=== PATIENT | male | born 1990 | race Caucasian/White ===

== ENCOUNTER → 2020-03-27 11:16 | Outpatient (BNVA) | payer SELFPAY | PROVIDERS: Visit Provider Nurse Practitioner | DX: S62.521A Displaced fracture of distal phalanx of right thumb, initial encounter for closed fracture (principal); X58.XXXA Exposure to other specified factors, initial encounter | CPT/HCPCS: 73130 ==

== ENCOUNTER 2022-02-12 10:29 | Outpatient (CLI) | payer OTHER, MEDICAID, SELFPAY ==
[2022-02-12] MEDS: iohexol 350 mg/mL 100 mL Btl IV (10:58)
--- NOTE | 2022-02-12 11:00 | CT_ITS ---
WS: [id number] CT ABDOMEN WITH CONTRAST HISTORY: abdominal pain, possible hernia. Epigastric pain. Contiguous single phase 5 mm axial imaging performed to the abdomen. Oral contrast has not been provi ded. Coronal and sagittal reformats are submitted. All CT scans at [facility] use at least on e of these dose optimization techniques: automated exposure control; mA and/or kV adjustment per rowena ent size (includes targeted exams where dose is matched to clinical indication); or iterative reconst ruction. CONTRAST: Omnipaque 350; 95 mL IV. DLP: 510.74 mGy.cm COMPARISON: None available. Lower thorax: Unremarkable. Liver: Normal. No intrahepatic dilatation. Gallbladder: Normal. Pancreas: Normal. Spleen: Normal. Adrenals: Normal. Right kidney: Normal. Left kidney: Normal. Aorta: Normal. GI tract: GE junction is normal. Mild fluid distention of the stomach. No small bowel obstruction. Th e visualized colon within the abdomen is negative. No adenopathy or free fluid. Abdominal wall: There is a very small fat-containing hernia at the umbilicus. No defect within the an terior abdominal wall in the supraumbilical region. No subxiphoid hernia. Visualized osseous structures: Unremarkable. CT/CT abdomen w con* [id number] IMPRESSION: 1. Very small umbilical hernia contains fat only. 2. No supraumbilical abdominal wall hernia.
== END 2022-02-12 10:30 | disposition home or self-care (01) ==
LOC: RAD 10:29
PROVIDERS: Visit Provider Surgery
DX: R10.9 Unspecified abdominal pain (principal); R19.00 Intra-abdominal and pelvic swelling, mass and lump, unspecified site; K42.9 Umbilical hernia without obstruction or gangrene
CPT/HCPCS: 74160

== ENCOUNTER 2024-11-17 13:13 | Emergency (ER) | payer BC, MEDICAID, SELFPAY ==
--- OUTSIDE RECORDS SUMMARY | 2023-08-03 11:15 | XMS_ITS | Continuity of Care Document ---
Author Organization [facility] Address [address] [id number][place] [address] Phone Care Team Providers Care Lime Vat Tender Name Role Phone Sherwood Norris MACIAS Unavailable [...] Diagnoses Date Provider Providers Copied on Encounter [facility], [id number] 5656631II- [place], [place], [address], [place] tel:[phone] [facility] Encounter for dental exam and cleaning w/o abnormal findings 4 Presley Pisano. [address] [place], [address], [place]. tel:[phone] Referring Provider: Norris Sherwood, [address] [place], [address]. tel:[phone] [facility], [address]kfkf[address]L4 6336855RY- [place], [place], [address], [place] tel:[phone] [facility] Encounter for dental exam and cleaning w/o abnormal findings 4 Presley Pisano. [address] [place], [address], [place]. tel:[phone] Referring Provider: Norris Sherwood, [address] [place], [address]. tel:[phone] OFFICE/OUTPAT IENT VISIT, [facility], [id number] 8759572PE- [place], [place], [address], [place] tel:[phone] [facility] Knee pain (chief complaint) Right anterior knee pain 3 Minor Tidwell. [address], [place], [address], [place]. tel:[phone] Referring Provider: Yaw Gaxiola, [address] [place], [address]. tel:[phone] [facility], [address] [id number] 7470977LE- [facility], [place], [place], [address], [place] tel:[phone] [facility] No Information 7 Luis A Beavers. [address] [place], [address], [place]. tel:[phone] Referring Provider: Nimesh Chinchilla, [address] [place], [address]. tel:[phone] [facility], [address] Nlrvy499X3 1945590UQLef[place], [address], [place] tel:[phone] [facility] No Information 4 No Information [facility], [address] [id number] 9080685JKLefl[place], [place], [address], [place] tel:[phone] [facility] No Information 7 4 No Information OFFICE/OUTPAT IENT VISIT, [facility], [address] Eexrv759F5 [place], [address], [place] tel:[phone] Family Medicine F1 anxiety (chief complaint) ADHD (chief complaint) back pain (chief complaint) No Information Feb- 0-201 2 No Information NEW-DETAIL/LO W COMPLEXITY [facility], [address] Kmftw038F5 1288131PJ[place]ef[place], [address], [place] tel:[phone] Family Medicine F1 No Information Feb-0 1-200 9 No Information [facility], [address] Tbsik597X4 1901722MOLefl[place], [place], [address], [place] tel:[phone] Family [facility] F1 No Information No Information Family History Family Member Type Diagnosis Age At Onset No Information Payers Payer name Insurance type Covered democrat ID Michaela Aquino (s) [id number] Social History Type Description Quantity Date Captured [...]
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
--- OUTSIDE RECORDS SUMMARY | 2024-11-17 13:18 | XMS_ITS | Encounter Summary ---
Author Organization [email or web address] Address [address] [place] [address] Care Team Providers Care Sales Project Engineer Name Role Phone Unavailable Primary Care Provider Unavailabl e Encounter Details Date Type Department Care Team (Late st Contact Info) Description 11/15/2024 External Device Data [facility]STRACTION Provider, Abstract NO ADDRESS ON FILE Social History Tobacco Use Types Packs/Day Years Used Date Smoking Tobacco: Former Smokeless Tobacco: Former Alcohol Use Standard Drinks/Week Comments No 0 (1 standard drink = 0.6 oz pur e alcohol) Feeling Safe Answer Date Recorded Are you in a relationship wi th someone who hurts you emotionally and/or physically? No 06/05/2024 Food Insecurity Answer Date Recorded Social/Environmental Concerns No concerns Transportation Needs Answer Date Record ed Social/Environmental Concerns No concerns Housing Stability Answer Date Recorded Social/Environmental Concerns No concerns Utility Needs Answer Date Recorded Social/Environmental Concerns No concerns Sex and Gender Information Value Date Recorded Sex Assigned at Male 05/17/2024 12:13 PM COPY MESSENGER Legal Sex Male 6:44 AM COPY MESSENGER Gender Identity Male 05/17/2024 12:13 PM COPY MESSENGER Sexual Orientation Straight 05/17/2024 12 :13 PM COPY MESSENGER documented as of this encounter Plan of Treatment Not on file documented as of this encounter Visit Diagnoses Not on filedocumented in this encounter Additional Health Concerns Assessment Noted Time PHQ-9 Depression Total Score: 4 06/08/19 20 10:00 AM COPY MESSENGER documented as of this encounter
--- OUTSIDE RECORDS SUMMARY | 2024-11-17 13:18 | XMS_ITS | Clinical Summary ---
Author Organization [facility] Address [address] [place] [address] Phone Care Team Providers Care Compliance Lead Name Role Phone Unavailable Primary Care Provider Unavailabl e Allergies Active Allergy Reactions Criticality Noted Date Comments Hydrocodone Nausea and Vomiting, Other (See Comments) Low 07/20/2023 Nausea and rash Medications morphine (MS IR) 15 mg tabletIndicatio ns:Calculus of left ureter Take 0.5 Tablets (7.5 mg) by mouth every 6 hours as needed for Pain, Moderate. Max Daily Amount: 30 mg 4 Tablet 06/05/2024 Active gabapentin (NEURONTIN) 100 mg capsule Take 1 Capsule (100 mg) by mouth 3 times daily. 90 Capsule 1 08/31/2024 Active Active Problems Problem Noted Date Diagnosed Date Presence of retained hardware 04/24/2023 Encounters Date Type Department Care Team Description 11/15/2024 External Device Data [facility] ABSTRACTION Provider, Abstract 11/01/2024 External Device Data [facility] ABSTRACTION Provider, Abstract 10/11/2024 External Device Data [facility] ABSTRACTION Provider, Abstract 10/06/2024 External Device Data [facility] ABSTRACTION Provider, Abstract 10/06/2024 External Device Data [facility] ABSTRACTION Provider, Abstract 08/31/2024 2:00 PM CDT Office Visit [facility] [address] [place] [address] Pankaj Maldonado PA Myofascial pain (Primary Dx); Axial spondyloarthritis; Spondylosis of lumbar region without myelopathy or radiculopathy 08/30/2024 External Device Data [facility] ABSTRACTION Provider, Abstract from Last 3 Months Immunizations Immunization Administration Dates Next Due (ADACEL/BOOSTRIX)(10 YR UP) TDAP VACCINE, 0.5ML, IM 12/24/2005 (HAVRIX/VAQTA)(19 YRS UP) HE PATITIS A VACCINE ADULT DOSAGE 1 ML IMM 06/08/2019 (M-M-R II/PRIORIX)(12 MO UP) MEASLES, MUMPS AND RUBELLA VIRUS VACCINE, 0.5 ML IM/SUBCUT 11/24/1995,01/22/1995 (PNEUMOVAX 23)(50 YRS UP) PN EUMOCOCCAL POLYSACCHARIDE (PPV23) 0.5 ML, IM 06/08/2019 Dt Dtp Dtap Vaccine 12/24/2005, 6,01/22/1995,09/20,1991 HIB, Unspecified Formulation 01/22/1995,09/20/18 93,1991 Hepatitis B Vaccine 05/27/1996,11/24/1995,1994 INFLUENZA VACCINE QUADRIVALE NT 3 YR UP PF IM 03/17/2019 IPV/OPV 11/24/1995, 5,09/20/1992,11/14 Poliovirus Vaccine Live Oral 11/24/1995, 01/22/1995,09/20/1992,11/14 Social History Tobacco Use Types Packs/Day Years Used Date Smoking Tobacco: Former Smokeless Tobacco: Former Tobacco Cessation:Counseling Given: Not Answered Alcohol Use Standard Drinks/Week Comments No 0 [...] Sex Assigned at Male 05/17/2024 12:13 PM DIESEL TRUCK MECHANIC Legal Sex Male 6:44 AM DIESEL TRUCK MECHANIC Gender Identity Male 05/17/2024 12:13 PM DIESEL TRUCK MECHANIC Sexual Orientation Straight 05/17/2024 12 :13 PM DIESEL TRUCK MECHANIC Last Filed Vital Signs Vital Sign Reading Time Taken Comments Blood Pressure 116/70 08/31/2024 1:43 PM CDT Pulse 60 06/05/2024 10:00 AM DIESEL TRUCK MECHANIC Temperature 37.1 C (98.7 F) 05/24/2024 12:39 PM DIESEL TRUCK MECHANIC Respiratory Rate 22 06/05/2024 7:35 AM DIESEL TRUCK MECHANIC Oxygen Saturation 100% 06/05/2024 10:00 AM DIESEL TRUCK MECHANIC Inhaled Oxygen Concentration - - Weight 68 kg (150 lb) 08/31/2024 1:43 PM CDT Height 177.8 cm (5' 10 ) 08/31/2024 1:43 PM CDT Body Mass Index 21.52 08/31/2024 1:43 PM CDT Plan of Treatment Health Maintenance Due Date Last Done Comments DTAP/TDAP/TD VACCINES (8 - Td or Tdap) 12/25/2015 12/24/2005, 12/24/2005, 11/24/1995, Additional history exists COVID-19 Vaccine ( season) 2024 11/12/2020 INFLUENZA VACCINE (#1) 2024 , 03/17/2019, 03/17/2019 HEPATITIS B VACCINES Completed 05/27/1996, 05/27/1996, 11/24/1995, Additional history exists HPV VACCINES Aged Out No longer eligi ble based on patient's age to complete this topic Medical Devices Explanted Type Area Diamond Polisher Device Identifier Shelf Expiration Date Model / Serial / Lot Nail Explanted:Qty: 1 on 04/24/2023 by Panchito Khanna MD at [facility] Right: Femur [employer] Screw Explanted:Qty: 4 on 04/24/2023 by Panchito Khanna MD at [facility] Right: Femur Insurance [facility] * Guarantor: SANTOS LONG Account Type Relation to Patient Date of Phone Billing Address Personal/Family [address] [place] [address] RX [facility]
[2024-11-17 13:23] VITALS: BP 135/84; PULSE 86; RESP 14; TEMP 36.8; O2SAT 99; BMI 20.7
--- NOTE | 2024-11-17 13:29 | ED_ITS ---
HPI - Male Genitourinary 2 General: Chief complaint: Urogenital-Male Stated complaint: unable to pee sent from urgent care Time Seen by Provider: 11/17/24 13:29 Source: patient Mode of arrival: ambulatory Limitations: no limitations History of Present Illness: 34-year-old male patient presents to the emergency department with urinary obstruction. Patient states he has not been able to urinate since yesterday around 11 PM. Patient states that he has been noticing some white penile discharge. Patient states he is concerned that he is got an STD. Patient denies any fever. Patient denies any other urinary symptoms. Patient denies any hematuria. Patient denies any flank pain. Patient does admit to being a IV drug abuser but states he is in rehab and has been clean for 6 days currently. Related Data Home Medications ?Medication ?Instructions ?Recorded ?Confirmed buprenorphine 8 mg-naloxone 2 mg 1 film buccal DAILY 0 11/17/24 11/17/24 sublingual film (Suboxone) duloxetine 60 mg capsule,delayed 60 mg PO DAILY 11/17/24 release quetiapine 300 mg tablet 300 mg PO DAILY 11/17/2408/09 Allergies Allergy/AdvReac Type Severity Reaction Status Date / Time hydrocodone Allergy ALGY-Difficulty Verified 11/17/24 13:28 Breathing Review of Systems 2 General: Reports: 10 or more systems reviewed and unremarkable except in HPI and below PFSH ED 2 PFSH: Medical History Abdominal wall hernia Social History Smoking and tobacco/nicotine status: current every day tobacco/nicotine user Physical Exam 2 Const: COMMON NORMALS: no acute distress and patient oriented x3 Resp: COMMON NORMALS: normal respiratory effort and No retractions Cardio: COMMON NORMALS: regular rate and regular rhythm RATE: regular rate RHYTHM: regular rhythm GI: COMMON NORMALS: Normal to inspection, nondistended, normoactive bowel sounds present, Soft to palpation and non-tender PALPATION: Yes Soft to palpation Neuro: COMMON NORMALS: patient oriented x3 Psych: COMMON NORMALS: mental status grossly normal, Normal thought process present and cooperative THOUGHT PROCESS: Normal thought process present Skin: COMMON NORMALS: no rashes or lesions noted and turgor normal GENERAL SKIN EXAM: no rashes or lesions noted, elasticity normal and turgor normal Course 2 Vital Signs: Vital signs: Vital Signs Temperature 98.2 F 11/17/24 13:23 Pulse Rate 78 11/17/24 16:38 Respiratory Rate 14 11/17/24 13:23 Blood Pressure 144/95 11/17/24 16:38 Pulse Oximetry 96 11/17/24 16:38 Oxygen Delivery Me thod Room Air 11/17/24 16:00 MDM - Male Medical Decision Making 34-year-old male patient presents to the emergency department with urinary obstruction. Patient states he has not been able to urinate since yesterday around 11 PM. Patient states that he has been noticing some white penile discharge. Patient states he is concerned that he is got an STD. Patient denies any fever. Patient denies any other urinary symptoms. Patient denies any hematuria. Patient denies any flank pain. Patient does admit to being a IV drug abuser but states he is in rehab and has been clean for 6 days currently. Patient is well-appearing nontoxic in no acute distress. Patient's abdomen is soft and nontender. Given patient's concerns for STD as well as penile discharge I will go ahead and start STD treatment at this time I will give patient 500 mg of Rocephin IM as well as 1000 mg of azithromycin per CDC's recommendation. I have discussed with patient safe sex practices. During patient's visit here he is [facility] that [facility] had drawn labs on patient's for baseline and patient did test positive for hepatitis A and hepatitis B. I did check labs here to evaluate patient's kidney function which were normal patient's liver enzymes are within normal limits there are no concerning findings on patient's lab work. Given patient's new on diagnosis of hepatitis B and hepatitis A I will have shoe parts caser set patient up with a primary care physician to follow and manage his care. Patient did have around 700 mL of retained urine in the bladder this was obtained from bladder scan Schmidt catheter was inserted almost 1 L of urine drained. I will keep Schmidt catheter in place while patient is undergoing treatment for STD telecommunications manager will call patient with a follow-up for urology for urinary obstruction as well as Schmidt catheter removal I discussed with patient safe sex practices the importance of staying clean and not sharing needles as well as continuing on the path of IV drug abuse patient verbalizes understanding. Patient is to be discharged home and [facility] I did discuss with follow-up with patient as well as home care and return precautions again patient's abdomen is soft and nontender I do not feel like there is any emergent need for additional testing at this time. Patient will follow-up with urology and primary care. Patient is medically cleared and appropriate for discharge Lab Data 11/17/24 14:03 11/17/24 14:03 Laboratory Results WBC 5.93 10^3/uL (3.29-11.43) 11/17/24 14:03 RBC 4.66 10^6/uL (3.85-5.65) 11/17/24 14:03 Hgb 13.80 g/dL (11.27-16.99) 11/17/24 14:03 Hct 43.3 % (37-53) 11/17/24 14:03 MCV 92.9 fl (82-101) 11/17/24 14:03 MCH 29.6 pg (27-33) 11/17/24 14:03 MCHC 31.9 g/dL (30-55) 11/17/24 14:03 RDW 12.5 % (12.1-15.1) 11/17/24 14:03 Plt Count 232 10^3/cmm (157-399) 11/17/24 14:03 MPV 9.5 fL (7.4-10.4) 11/17/24 14:03 Neut % (Auto) 49.8 % 11/17/24 14:03 Lymph % (Auto) 39.5 % 11/17/24 14:03 [place] % (Auto) 8.6 % 11/17/24 14:03 Eos % (Auto) 0.8 % 11/17/24 14:03 Baso % (Auto) 1.0 % 11/17/24 14:03 Neut # (Auto) 2.95 10^3/uL (1.8-7.7) 11/17/24 14:03 Lymph # (Auto) 2.3 10^3/uL (0.8-4.8) 11/17/24 14:03 [place] # (Auto) 0.5 10^3/uL (0.2-0.9) 11/17/24 14:03 Eos # (Auto) 0.1 10^3/uL (0.0-0.8) 11/17/24 14:03 Baso # (Auto) 0.1 10^3/uL (0.0-0.1) 11/17/24 14:03 Nucleated RBC % (auto) 0 % 11/17/24 14:03 Nucleated RBCs # 0.0 /100WBC 11/17/24 14:03 Sodium 140 mmol/L (136-145) 11/17/24 14:03 Potassium 4.0 mmol/L (3.5-5.1) 11/17/24 14:03 Chloride 99 mmol/L (98-107) 11/17/24 14:03 Carbon Dioxide 28 mmol/L (22-29) 11/17/24 14:03 Anion Gap 17.0 (5-19) 11/17/24 14:03 BUN 10 mg/dL (6-20) 11/17/24 14:03 Creatinine 0.9 mg/dL (0.7-1.2) 11/17/24 14:03 GFR Calculation 97.2 mL/min (90-130) 11/17/24 14:03 Glucose 71 mg/dL (65-115) 11/17/24 14:03 Calculated Osmolality 288 mOsm/kg (285-295) 11/17/24 14:03 Calcium 9.6 mg/dL (8.5-10.5) 11/17/24 14:03 Total Bilirubin 0.3 mg/dL (0.15-1.2) 11/17/24 14:03 AST 15 U/L (0-40) 11/17/24 14:03 ALT 10 U/L (0-41) 11/17/24 14:03 Alkaline Phosphatase 111 U/L (40-130) 11/17/24 14:03 Total Protein 7.1 g/dL (6.6-8.7) 11/17/24 14:03 Albumin 4.6 g/dL (3.5-5.2) 11/17/24 14:03 Globulin 2.5 g/dL (1.3-4.6) 11/17/24 14:03 Urine Color Yellow (Yellow) 11/17/24 14:40 Urine Appearance Clear (CLEAR) 11/17/24 14:40 Urine pH 6.0 (5-7) 11/17/24 14:40 Ur Specific [place] 1.011 (1.005-1.030) 11/17/24 14:40 Urine Protein Negative (Negative) 11/17/24 14:40 Urine Glucose (UA) Negative (Normal) 11/17/24 14:40 Urine Ketones Negative (Negative) 11/17/24 14:40 Urine Blood Negative (Negative) 11/17/24 14:40 Urine Nitrate Negative (Negative) 11/17/24 14:40 Urine Bilirubin Negative (Negative) 11/17/24 14:40 Urine Urobilinogen 0.2 mg/dL (Negative) 11/17/24 14:40 Ur Leukocyte Esterase Negative (Negative) 11/17/24 14:40 Urine RBC 0-2 /hpf (0-2) 11/17/24 14:40 Urine WBC 0-5 /hpf (0-5) 11/17/24 14:40 Ur Squamous Epith Cells 0-5 /hpf (0-5) 11/17/24 14:40 Amorphous Sediment Not Reportable 11/17/24 14:40 Urine Bacteria None seen /hpf (NONE) 11/17/24 14:40 Hyaline Casts 0-4 /lpf H 11/17/24 14:40 C. trachomatis (PCR) Not detected (Negative) 11/17/24 14:40 C.trachomatis RNA (TMA) Cancelled 11/17/24 14:40 Chlamydia/GC Comment Cancelled 11/17/24 14:40 N. gonorrhoeae (PCR) Not detected (Negative) 11/17/24 14:40 N.gonorrhoeae RNA (TMA) Cancelled 11/17/24 14:40 T. vaginalis (PCR) Not detected (Negative) 11/17/24 14:40 All radiology interpretation(s) finalized by discharge Discharge Plan Discharge Patient Disposition: Home Clinical Impression: Acute retention of urine, STI (sexually transmitted infection) Condition: Stable Prescriptions: No Action buprenorphine-naloxone [Suboxone] 8-2 mg film 1 film buccal DAILY quetiapine 300 mg tablet 300 mg PO DAILY duloxetine 60 mg capsule,delayed release(DR/EC) 60 mg PO DAILY Discharge Orders: Discharge ED (Routine); Ordered 11/17/24 Ordered By: Claudia Saucedo Discharge Diet: Advance as tolerated Discharge Activity: Resume usual activity Patient Instructions: Sexually Transmitted Diseases (ED), Opioid Safety, Pain Management, Patient Portal & Armand Instructions Activity Restrictions/Additional Instructions: PLease follow up with urology as well as PCP. Case Management will call you with details. Please follow discharge instructions as provided Please follow safe sex practices as provided Keep schmidt cath in place until seen by Urology Return to ER with any worsening of symptoms or concrens Print Language: Sao Tomean Coding Level of Care Code ED Veterinary Pharmacologist for Nestor Mejia
[2024-11-17 14:07] VITALS: BP 134/84; PULSE 84; O2SAT 100
--- NOTE | 2024-11-17 14:10 | PC.NURSE ---
pt bladder scan was done, showed >650cc urine. Pt states last urination was early this morning .
[2024-11-17 14:15] LABS: Hematocrit 43.3 % (37-53); Hemoglobin 13.80 g/dL (11.27-16.99); Mean Corpuscular HGB Conc 31.9 g/dL (30-55); Mean Corpuscular Hemoglobin 29.6 pg (27-33); Mean Corpuscular Volume 92.9 fl (82-101); Nucleated Red Blood Cells % 0 %; Platelet Count 232 10^3/cmm (157-399); Red Blood Count 4.66 10^6/uL (3.85-5.65); White Blood Count 5.93 10^3/uL (3.29-11.43)
[2024-11-17] MEDS: lidocaine 2% Urojet 20 mL TOPICAL (14:25)
[2024-11-17 14:40] LABS: Alanine Aminotransferase 10 U/L (0-41); Albumin Level 4.6 g/dL (3.5-5.2); Alkaline Phosphatase 111 U/L (40-130); Anion Gap 17.0 (5-19); Aspartate Amino Transferase 15 U/L (0-40); Blood Urea Nitrogen 10 mg/dL (6-20); Calcium 9.6 mg/dL (8.5-10.5); Carbon Dioxide 28 mmol/L (22-29); Chloride 99 mmol/L (98-107); Creatinine Clr Calc Pharmacy 119.2423; Globulin 2.5 g/dL (1.3-4.6); Glucose 71 mg/dL (65-115); Osmolality Calculated 288 mOsm/kg (285-295); Potassium 4.0 mmol/L (3.5-5.1); Sodium 140 mmol/L (136-145); Total Protein 7.1 g/dL (6.6-8.7)
[2024-11-17 14:53] VITALS: PULSE 81; O2SAT 97
[2024-11-17 15:00] VITALS: BP 134/93; PULSE 76; O2SAT 97
[2024-11-17 15:06] LABS: Glucose Urine UA Negative (Normal); Nitrate Urine Negative (Negative); Specific Gravity, Urine 1.011 (1.005-1.030)
[2024-11-17 15:11] LABS: Add Urine Microscopic? YES
--- NOTE | 2024-11-17 15:19 | PC.NURSE ---
[facility] contacted this nurse in regards to Pt, report from Jennifer RN at [facility] states they did blood work and the results came back today that pt is Hep A and Hep B positive, Pt is unaware. this nurse notified EPIC PROFESSIONAL Claudia.
[2024-11-17] MEDS: cefTRIAXone 500 mg SDV IV (15:51)
--- NOTE | 2024-11-17 15:58 | PC.NURSE ---
pt states wanting the foely removed, pt states he does not want to go home with the schmidt. GROCERY DELIVERER in a room at this time. Pt did voice that he will pull it out himself.
[2024-11-17 16:00] VITALS: BP 144/95; PULSE 78; O2SAT 98
[2024-11-17 16:38] VITALS: BP 144/95; PULSE 78; O2SAT 96
[2024-11-17 17:39] LABS: Trichomonas vaginalis (PCR) NOT DETECTED (Negative)
[2024-11-17 18:02] LABS: Neisseria Gonorrhea NOT DETECTED (Negative)
== END 2024-11-17 16:41 | disposition home or self-care (01) ==
PROVIDERS: Emergency Provider Registered Nurse
DX: R33.9 Retention of urine, unspecified (principal); A64 Unspecified sexually transmitted disease; Z72.0 Tobacco use
CPT/HCPCS: 36415; 51702; 51798; 80053; 81001; 85025; 87491; 87591; 87661; 96374; 99284; J0696; J9999; Q0144

== ENCOUNTER 2024-11-20 19:38 | Emergency (ER) | payer BC, MEDICAID, SELFPAY ==
--- OUTSIDE RECORDS SUMMARY | 2023-08-03 11:15 | XMS_ITS | Continuity of Care Document ---
Author Organization [facility] Address [address] [id number]-[place] [address] Phone Care Team Providers Care Sectionizer Name Role Phone Sherwood Norris MACIAS Unavailable [...] Diagnoses Date Provider Providers Copied on Encounter [facility], [address] [id number] 7675781GX- [place], [place], [address], [place] tel:[phone] [facility] Encounter for dental exam and cleaning w/o abnormal findings 4 Presley Pisano. [address] [place], [address], [place]. tel:[phone] Referring Provider: Norris Sherwood, [address] [place], [address]. tel:[phone] [facility], [address] [id number] 4052694LX- [place], [place], [address], [place] tel:[phone] [facility] Encounter for dental exam and cleaning w/o abnormal findings 4 Presley Pisano. [address] [place], [address], [place]. tel:[phone] Referring Provider: Norris Sherwood, [address] [place], [address]. tel:[phone] OFFICE/OUTPAT IENT VISIT, [facility], [address] Kycvz802P2 7417381KA- [place], [place], [address], [place] tel:[phone] [facility] Knee pain (chief complaint) Right anterior knee pain 3 Minor Tidwell. [address] [place], [place], [address], [place]. tel:[phone] Referring Provider: Yaw Gaxiola, [address] [place], [address]. tel:[phone] [facility], [address] [id number] 3280138SH- [facility], [place], [place], [address], [place] tel:[phone] [facility] No Information 7 Luis A Beavers. [address] [place], [address], [place]. tel:[phone] Referring Provider: Nimesh Chinchilla, [address] [place], [address]. tel:[phone] [facility], [address] Bnrry[address]L8 8929[place], [place], [address], [place] tel:[phone] [facility] No Information 4 No Information [facility], [address] Qjtyz965L6 1690393ZKSav[place], [place], [address], [place] tel:[phone] [facility] No Information 7 4 No Information OFFICE/OUTPAT IENT VISIT, [facility], [address] Lqovc195P0 3116[place]CA[place], [place], [address], [place] tel:[phone] Family Medicine F1 anxiety (chief complaint) ADHD (chief complaint) back pain (chief complaint) No Information Feb- 0-201 2 No Information NEW-DETAIL/LO W COMPLEXITY [facility], [address] Ikkwv[address]X7 0299219GXSav[place], [place], [address], [place] tel:[phone] Family Medicine F1 No Information Feb-0 1-200 9 No Information [facility], [address] Kouwc242U4 5466702MGSav[place], [place], [address], [place] tel:[phone] Family Medicine F1 No Information No Information Family History Family Member Type Diagnosis Age At Onset No Information Payers Payer name Insurance type Covered alliance party ID Michaela Aquino (s) [id number] Social History Type Description Quantity Date Captured [...]
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
[2024-11-20 19:41] VITALS: BP 141/100; PULSE 90; RESP 14; TEMP 36.6; O2SAT 98
--- OUTSIDE RECORDS SUMMARY | 2024-11-20 19:45 | XMS_ITS | Encounter Summary ---
Author Organization [facility] Address [address] [place] [address] Care Team Providers Care Chicken Cleaner Name Role Phone Unavailable Primary Care Provider [...] Sex Assigned at Male 05/17/2024 12:13 PM DIETETIC TECH Legal Sex Male 6:44 AM DIETETIC TECH Gender Identity Male 05/17/2024 12:13 PM DIETETIC TECH Sexual Orientation Straight 05/17/2024 12 :13 PM DIETETIC TECH documented as of this encounter Plan of Treatment Not on file documented as of this encounter Visit Diagnoses Not on filedocumented in this encounter Additional Health Concerns Assessment Noted Time PHQ-9 Depression Total Score: 4 06/08/19 20 10:00 AM DIETETIC TECH documented as of this encounter
--- OUTSIDE RECORDS SUMMARY | 2024-11-20 19:45 | XMS_ITS | Clinical Summary ---
Author Organization [facility] Address [address] [place] [address] Phone Care Team Providers Care Machine Set Up Operator Name Role Phone Unavailable Primary Care Provider [...] Abstract 08/31/2024 2:00 PM CDT Office Visit [facility] [address] [place] [address] Pankaj Maldonado PA Myofascial pain [...] Sex Assigned at Male 05/17/2024 12:13 PM GUIDE CRUISE Legal Sex Male 6:44 AM GUIDE CRUISE Gender Identity Male 05/17/2024 12:13 PM GUIDE CRUISE Sexual Orientation Straight 05/17/2024 12 :13 PM GUIDE CRUISE Last Filed Vital Signs Vital Sign Reading Time Taken Comments Blood Pressure 116/70 08/31/2024 1:43 PM CDT Pulse 60 06/05/2024 10:00 AM GUIDE CRUISE Temperature 37.1 C (98.7 F) 05/24/2024 12:39 PM GUIDE CRUISE Respiratory Rate 22 06/05/2024 7:35 AM GUIDE CRUISE Oxygen Saturation 100% 06/05/2024 10:00 AM GUIDE CRUISE Inhaled Oxygen Concentration - - Weight 68 [...] this topic Medical Devices Explanted Type Area Professor Of Fine Art Device Identifier Shelf Expiration Date Model / Serial / Lot Nail Explanted:Qty: 1 on 04/24/2023 by Panchito Khanna MD at [facility] Right: Femur [employer] Screw Explanted:Qty: 4 on 04/24/2023 by Panchito Khanna MD at [facility] Right: Femur Insurance [facility] MEDICAID [facility] MEDICAID * Guarantor: SANTOS LONG Account Type Relation to Patient Date of Phone Billing Address Personal/Family [address] [place] [address] [facility]
--- NOTE | 2024-11-20 20:38 | W.ED.MALEGU ---
HPI - Male Genitourinary General: Chief complaint: Urogenital-Male Stated complaint: Blood in Cath not feeling good Time Seen by Provider: 11/20/24 20:03 History of Present Illness: 34-year-old male patient he was seen 3 nights ago for urinary outlet obstruction. Garcia catheter was placed. He was treated for STI. Swabs came back negative for chlamydia, gonorrhea, trichomonas. He presents today with a full feeling in his pelvis, the feeling of his urine not draining appropriately, and blood in his catheter. He has been having some diarrhea. He was placed on a stool softener recently, which he attributes the diarrhea to. No vomiting. No fever. He continues to have some discharge around his catheter. Related Data Home Medications ?Medication ?Instructions ?Recorded ?Confirmed buprenorphine 8 mg-naloxone 2 mg 1 film buccal DAILY 11/17/24 11/17/24 sublingual film (Suboxone) duloxetine 60 mg capsule,delayed 60 mg PO DAILY 11/17/24 11/17/24 release quetiapine 300 mg tablet 300 mg PO DAILY 11/17/24 11/17/24 Previous Rx's ?Medication ?Instructions ?Recorded nitrofurantoin 100 mg PO BID 7 days #14 caps 11/20/24 monohydrate/macrocrystals 100 mg capsule (Macrobid) Allergies Allergy/AdvReac Type Severity Reaction Status Date / Time hydrocodone Allergy ALGY-Difficulty Verified 11/20/24 19:45 Breathing [facility] ED PFSH: Medical History Abdominal wall hernia Social History Smoking and tobacco/nicotine status: current every day tobacco/nicotine user Physical Exam Const: COMMON NORMALS: no acute distress GENERAL APPEARANCE: cooperative; not ill appearing and not frail appearing HENMT: COMMON NORMALS: normocephalic, atraumatic and Normal external nose present HEAD & SCALP: normocephalic and atraumatic FACE & SINUS: normal facial exam and face symmetric NOSE: Normal external nose present Eye: COMMON NORMALS: Equal, round and reactive pupils present and EOMs intact bilaterally PUPIL: Yes Equal, round and reactive pupils present Neck/C-Spine: GENERAL: Yes trachea midline Chest: CHEST: Yes Symmetrical chest wall rise Resp: COMMON NORMALS: normal respiratory effort, No retractions, No use of accessory muscles and clear to auscultation bilaterally AUSCULTATION: clear to auscultation bilaterally Cardio: COMMON NORMALS: regular rate and regular rhythm RATE: regular rate RHYTHM: regular rhythm GI: COMMON NORMALS: Normal to inspection, nondistended, normoactive bowel sounds present : OTHER: Catheter in place. Garcia draining bloody urine. No apparent complication. Extremity: COMMON NORMALS: no pedal edema Neuro: DEVEN COMA SCALE: document GCS findings Deven coma scale eye opening: Spontaneous Garrison coma scale verbal response: Orientated Deven coma scale motor response: Obey commands Garrison coma scale total score: 15 SENSORY EXAM: Yes extremities (intact) Psych: COMMON NORMALS: speech normal SPEECH: Yes normal speech Skin: COMMON NORMALS: no rashes or lesions noted GENERAL SKIN EXAM: no rashes or lesions noted Course Vital Signs: Vital signs: Vital Signs Temperature 97.9 F 11/20/24 19:41 Pulse Rate 90 11/20/24 19:41 Respiratory Rate 14 11/20/24 19:41 Blood Pressure 159/101 11/20/24 21:10 Pulse Oximetry 93 11/20/24 21:10 MDM - Male Medical Decision Making Catheter flushed by nursing. Draining appropriately. Suspect mild trauma as a source of bleeding. Urinalysis is pending. Urinalysis shows hematuria. No overt signs of infection. He will be placed on Macrobid for prophylaxis. Again, STI infection testing was -3 days ago. Lab Data Laboratory Results Urine Color Red (Yellow) A 11/20/24 20:30 Urine Appearance Turbid (CLEAR) A 11/20/24 20:30 Urine pH >=9.0 (5-7) A 11/20/24 20:30 Ur Specific Dickerson 1.019 (1.005-1.030) 11/20/24 20:30 Urine Protein 2+ (Negative) A 11/20/24 20:30 Urine Glucose (UA) Negative (Normal) 11/20/24 20: Urine Ketones Negative (Negative) 11/20/24 20:30 Urine Blood 3+ (Negative) A 11/20/24 20:30 Urine Nitrate Negative (Negative) 11/20/24 20: Urine Bilirubin Negative (Negative) 11/20/24 20: Urine Urobilinogen 1.0 mg/dL (Negative) 11/20/24 20:30 Ur Leukocyte Esterase 1+ (Negative) A 11/20/24 20:30 Urine RBC >100 /hpf (0-2) H 11/20/24 20:30 Urine WBC 6-10 /hpf (0-5) 11/20/24 20:30 Ur Squamous Epith Cells 0-5 /hpf (0-5) 11/20/24 20:30 Amorphous Sediment Not Reportable 11/20/24 20:30 Urine Bacteria None seen /hpf (NONE) 11/20/24 20:30 Hyaline Casts 0.81 /lpf 11/20/24 20:30 No radiology studies performed this visit Discharge Plan Discharge Patient Disposition: Home Clinical Impression: Hematuria, Garcia catheter in place Condition: Stable Prescriptions: New nitrofurantoin monohyd/m-cryst [Macrobid] 100 mg capsule 100 mg PO BID 7 Days Qty: 14 0RF Rx Instructions: must administer with a meal/food No Action buprenorphine-naloxone [Suboxone] 8-2 mg film 1 film buccal DAILY quetiapine 300 mg tablet 300 mg PO DAILY duloxetine 60 mg capsule,delayed release(DR/EC) 60 mg PO DAILY Discharge Orders: Discharge ED (Routine); Ordered 11/20/24 Ordered By: Murtaza Mullen Patient Instructions: Garcia Catheter Placement and Care (ED), Opioid Safety, Pain Management, Patient Portal & Armand Instructions Activity Restrictions/Additional Instructions: You will be placed on antibiotics for prophylaxis for infection although there is no active infection currently. Avoid trauma to your catheter. Return for problems. Follow-up as previously instructed. Print Language: Bulgarian Coding Level of Care Code ED Campus Security Officer for Nestor Mejia
[2024-11-20 20:49] LABS: Glucose Urine UA Negative (Normal); Nitrate Urine Negative (Negative); Specific Gravity, Urine 1.019 (1.005-1.030)
[2024-11-20 20:54] LABS: Add Urine Microscopic? YES
[2024-11-20 21:10] VITALS: BP 159/101; O2SAT 93
== END 2024-11-20 21:31 | disposition home or self-care (01) ==
PROVIDERS: Emergency Provider Emergency Medicine
DX: R31.9 Hematuria, unspecified (principal); Z72.0 Tobacco use
CPT/HCPCS: 81001; 87086; 99283

== ENCOUNTER 2024-11-21 14:09 | Emergency (ER) | payer BC, MEDICAID, SELFPAY ==
--- OUTSIDE RECORDS SUMMARY | 2023-08-03 11:15 | XMS_ITS | Continuity of Care Document ---
Author Organization [facility] Address [address] [id number][place] [address] Phone Care Team Providers Care Edge Bander Hand Name Role Phone Sherwood Norris MACIAS Unavailable [...] Diagnoses Date Provider Providers Copied on Encounter [facility], [id number]- [place], [place], [address], [place] tel:[phone] [facility] Encounter for dental exam and cleaning w/o abnormal findings 4 Presley Pisano. [address] [place], [address], [place]. tel:[phone] Referring Provider: Norris Sherwood, [address] [place], [address]. tel:[phone] [facility], [id number] 7057166HE- [place], [address], [place] tel:[phone] [facility] Encounter for dental exam and cleaning w/o abnormal findings 4 Presley Pisano. [address] [place], [address], [place]. tel:[phone] Referring Provider: Norris Sherwood, [address] [place], [address]. tel:[phone] OFFICE/OUTPAT IENT VISIT, [facility], [id number]- [place], [address], [place] tel:[phone] [facility] Knee pain (chief complaint) Right anterior knee pain 3 Minor Tidwell. [address], [place], [address], [place]. tel:[phone] Referring Provider: Yaw Gaxiola, [address] [place], [address]. tel:[phone] [facility], [id number] 1384267WR- [facility], [place], [place], [address], [place] tel:[phone] [facility] No Information 7 Luis A Beavers. [address] [place], [address], [place]. tel:[phone] Referring Provider: Nimesh Chinchilla, [address] [place], [address]. tel:[phone] [facility], [address] [id number] 1612810SPMays[place], [address], [place] tel:[phone] [facility] No Information 4 No Information [facility], [id number], [address], [place] tel:[phone] [facility] No Information 7 4 No Information OFFICE/OUTPAT IENT VISIT, [facility], [address] [id number] 8916[place]EIM[place], [place], [address], [place] tel:[phone] Family Medicine F1 anxiety (chief complaint) ADHD (chief complaint) back pain (chief complaint) No Information Feb- 0-201 2 No Information NEW-DETAIL/LO W COMPLEXITY [facility], [address] [id number] [id number], [address], [place] tel:[phone] Family Medicine F1 No Information Feb-0 1-200 9 No Information [facility], [address] [id number] 5354385UMMays[place], [place], [address], [place] tel:[phone] Family Medicine F1 No Information No Information Family History Family Member Type Diagnosis Age At Onset No Information Payers Payer name Insurance type Covered green party ID Michaela Aquino (s) [id number] Social History Type Description Quantity Date Captured [...]
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
[2024-11-21 14:11] VITALS: BP 151/104; PULSE 71; TEMP 36.7; O2SAT 99
--- OUTSIDE RECORDS SUMMARY | 2024-11-21 14:16 | XMS_ITS | Clinical Summary ---
Author Organization [facility] Address [address] [place] [address] Phone Care Team Providers Care School Curriculum Developer Name Role Phone Unavailable Primary Care Provider [...] Abstract 08/31/2024 2:00 PM CDT Office Visit [facility] [address] [place] [address] Pankaj Maldonado PA Myofascial pain [...] Sex Assigned at Male 05/17/2024 12:13 PM VULNERABILITY RESEARCHER Legal Sex Male 6:44 AM VULNERABILITY RESEARCHER Gender Identity Male 05/17/2024 12:13 PM VULNERABILITY RESEARCHER Sexual Orientation Straight 05/17/2024 12 :13 PM VULNERABILITY RESEARCHER Last Filed Vital Signs Vital Sign Reading Time Taken Comments Blood Pressure 116/70 08/31/2024 1:43 PM CDT Pulse 60 06/05/2024 10:00 AM VULNERABILITY RESEARCHER Temperature 37.1 C (98.7 F) 05/24/2024 12:39 PM VULNERABILITY RESEARCHER Respiratory Rate 22 06/05/2024 7:35 AM VULNERABILITY RESEARCHER Oxygen Saturation 100% 06/05/2024 10:00 AM VULNERABILITY RESEARCHER Inhaled Oxygen Concentration - - Weight 68 kg (150 lb) 08/31/2024 1:43 PM CDT Height 177.8 cm (5' 10 ) 08/31/2024 1:43 PM CDT Body Mass Index 21.52 08/31/2024 1:43 PM CDT Plan of Treatment Health Maintenance Due Date Last Done Comments Preventative Visit-Managed Medicaid 07/20/2010 DTAP/TDAP/TD VACCINES (8 - Td or Tdap) 12/25/2015 12/24/2005, 12/24/2005, 11/24/1995, Additional history exists COVID-19 Vaccine ( season) 2024 11/12/2020 INFLUENZA VACCINE (#1) 2024 , 03/17/2019, 03/17/2019 HEPATITIS B VACCINES Completed 05/27/1996, 05/27/1996, 11/24/1995, Additional history exists HPV VACCINES Aged Out No longer eligi ble based on patient's age to complete this topic Medical Devices Explanted Type Area Used Car Manager Device Identifier Shelf Expiration Date Model / Serial / Lot Nail Explanted:Qty: 1 on 04/24/2023 by Panchito Khanna MD at [facility] Right: Femur [employer] Screw Explanted:Qty: 4 on 04/24/2023 by Panchito Khanna MD at [facility] Right: Femur Insurance [facility] * Guarantor: SANTOS LONG Account Type Relation to Patient Date of Phone Billing Address Personal/Family [address] [place] [address] [facility]
--- OUTSIDE RECORDS SUMMARY | 2024-11-21 14:16 | XMS_ITS | Encounter Summary ---
Author Organization [email or web address] Address [address] [place] [address] Care Team Providers Care Prototype Machinist Name Role Phone Unavailable Primary Care Provider [...] Sex Assigned at Male 05/17/2024 12:13 PM CLINICAL SUPERVISOR Legal Sex Male 6:44 AM CLINICAL SUPERVISOR Gender Identity Male 05/17/2024 12:13 PM CLINICAL SUPERVISOR Sexual Orientation Straight 05/17/2024 12 :13 PM CLINICAL SUPERVISOR documented as of this encounter Plan of Treatment Not on file documented as of this encounter Visit Diagnoses Not on filedocumented in this encounter Additional Health Concerns Assessment Noted Time PHQ-9 Depression Total Score: 4 06/08/19 20 10:00 AM CLINICAL SUPERVISOR documented as of this encounter
--- NOTE | 2024-11-21 14:32 | ED_ITS ---
HPI - Male Genitourinary General: Chief complaint: General Medical Stated complaint: cath bag broke Time Seen by Provider: 11/21/24 14:20 Source: patient Mode of arrival: ambulatory Limitations: no limitations History of Present Illness: Patient is a 34-year-old male who presents to ED today with a complaint that his Schmidt leg bag has a crack in it and is leaking. Patient had a Schmidt catheter placed on 11/17 here in the emergency department after he was diagnosed with acute urinary retention. He had concerns at that time for a possible STD although his testing for this came back negative. Patient was seen here in the emergency department yesterday stating that the Schmidt was not draining properly. It was flushed here in the emergency department and was functioning well at time of discharge. Patient is also requesting a larger bag that he can wear at night due to the burden of frequent emptying on his smaller leg bag. States he has had a urology follow-up appointment placed with [facility]ORM[facility] Complaint: other (schmidt catheter problem; bag leaking) Onset (ago): hour(s) Duration: constant Relieving factors: none Exacerbating factors: none Associated symptoms: Reports no associated symptoms; Deny hematuria, nausea or vomiting Related Data Home Medications ?Medication ?Instructions ?Recorded ?Confirmed buprenorphine 8 mg-naloxone 2 mg 1 film buccal DAILY 0 11/17/24 11/17/24 sublingual film (Suboxone) duloxetine 60 mg capsule,delayed 60 mg PO DAILY 11/17/24 release quetiapine 300 mg tablet 300 mg PO DAILY 11/17/2408/09 Previous Rx's ?Medication ?Instructions ?Recorded nitrofurantoin 100 mg PO BID 7 days #14 cap s 11/20/24 monohydrate/macrocrystals 100 mg capsule (Macrobid) Allergies Allergy/AdvReac Type Severity Reaction Status Date / Time hydrocodone Allergy ALGY-Difficulty Verified 11/21/24 14:16 Breathing Review of Systems Const: Denies: fever(s), chills, body aches, fatigue or malaise Card: Denies: chest pain Resp: Denies: dyspnea GI: Denies: abdominal pain, nausea, vomiting or diarrhea : Reports: other (schmidt leg back leaking); Denies: flank pain or hematuria Musc: Denies: back pain PFSH ED PFSH: Medical History Abdominal wall hernia Social History Smoking and tobacco/nicotine status: current every day tobacco/nicotine user Physical Exam Const: COMMON NORMALS: no acute distress, average body habitus, no limitations, healthy appearing, alert and well nourished GI: COMMON NORMALS: Normal to inspection, nondistended, normoactive bowel sounds present, Soft to palpation and non-tender PALPATION: Yes Soft to palpation : COMMON NORMALS: Yes no CVA tenderness BLADDER/KIDNEY EXAM: Yes no CVA tenderness OTHER: leg bag with small crack/tape leaking Back/Pelvis: COMMON NORMALS: no CVA tenderness Extremity: GENERAL: Yes normal exam except as noted Neuro: SENSORIUM/ORIENTATION: Yes alert Course Vital Signs: Vital signs: Vital Signs Temperature 98.0 F 11/21/24 14:11 Pulse Rate 71 11/21/24 14:11 Blood Pressure 151/104 11/21/24 14:11 Pulse Oximetry 99 11/21/24 14:11 Oxygen Delivery Me thod Room Air 11/21/24 14:11 MDM - Male Medical Decision Making Leg bag replaced. Will give him larger bag he can change out at night. Plan will be to continue follow up with urology. No radiology studies performed this visit Discharge Plan Discharge Patient Disposition: Home Clinical Impression: Schmidt catheter problem Qualifiers: Encounter type: initial encounter Qualified Code(s): T83.9XXA - Unspecified complication of genitourinary prosthetic device, implant and graft, initial encounter Condition: Stable Prescriptions: No Action buprenorphine-naloxone [Suboxone] 8-2 mg film 1 film buccal DAILY quetiapine 300 mg tablet 300 mg PO DAILY duloxetine 60 mg capsule,delayed release(DR/EC) 60 mg PO DAILY nitrofurantoin monohyd/m-cryst [Macrobid] 100 mg capsule 100 mg PO BID 7 Days Qty: 14 0RF Rx Instructions: must administer with a meal/food Discharge Orders: Discharge ED (Routine); Ordered 11/21/24 Ordered By: Jennifer Lainez Patient Instructions: Patient Portal & Armand Instructions Print Language: Czech Coding Level of Care Code ED Campus Administrative Assistant for Nestor Mejia
[2024-11-21 14:56] VITALS: PULSE 88; O2SAT 99
== END 2024-11-21 14:58 | disposition home or self-care (01) ==
PROVIDERS: Emergency Provider Physician Assistant
DX: T83.9XXA Unspecified complication of genitourinary prosthetic device, implant and graft, initial encounter (principal); Z72.0 Tobacco use; X58.XXXA Exposure to other specified factors, initial encounter
CPT/HCPCS: 99282

== ENCOUNTER 2024-12-11 11:50 | Emergency (ER) | payer BC, MEDICAID, SELFPAY ==
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
--- OUTSIDE RECORDS SUMMARY | 2024-12-11 11:54 | XMS_ITS | Patient Health Record ---
Author Organization [facility] Address [address] [place] [address] Care Team Providers Care Pit Slagman Name Role Phone LIBIA STEVENS Unavailable [phone] TRI JANE Unavailable [phone] Allergies Allergen (clinical drug ingredient) Drug/Non Drug Allergy documented on EMR Reaction Allergy Type Onset Date Status hydrocodone HYDROcodone Unknown Drug Allergy Act lamar Reason For Referral No Information Medications Medication SIG (Take, Route, Fr equency, Duration) Notes Start Date End Date Status Suboxone 8-2 MG 1 film under the ton sudhir and allow to dissolve Sublingual Once a day A ctive SEROquel 300 MG 1 tablet at bedtime Orally Once a day Active DULoxetine HCl Activ e Social History Tobacco Use: Social History Observation Description Date Details (start date - stop date) Current Smoker NA - NA Tobacco Control (Standard) Question Answer Notes Tobacco use: Current smoker How often do you smoke cigarettes? Every day How many cigarettes a day do you smoke? 5 or les s AUDIT-C (Standard) Question Answer Notes Did you have a drink containing alcohol in the p ast year? No Points 0 Interpretation Negative Section Notes: iv user - meth and fentanyl Problems Problem Type SNOMED Code ICD Code Onset Dates Problem Status W/U Status Risk Notes Problem HIV positive (839498228) HIV positive (Z21) Active confirmed Problem Methamphetamine abuse (557922423) Methamphetamine abuse (F15.10) Active confirmed Vital Signs Heart Rate 118 /min 11/25/2024 Height-cm 182.88 cm 11/25/2024 Blood pressure diastolic 84 mm Hg 11/25/2024 Weight-kg 66.23 kg 11/25/2024 Height 72 in 11/25/2024 Blood pressure systolic 122 mm Hg 11/25/2024 Weight 146 lbs 11/25/2024 BMI 19.8 kg/m2 11/25/2024 Procedures Procedure Date Ordered Date Performed Result Body Sit e Voiding Trial 11/25/2024 11/25/2024 N/A Encounters Encounter Location Date Provider Diagnosis [employer] [employer] [address] [place] [address] 11/25/2024 TRI JANE Acute urinary retent ion R33.8 ; Acute prostatitis N41.0 ; IV drug user F19.90 ; Methamphetamine abuse F15.10 ; Hepatitis B antibody positive R76.8 ; Hepatitis A antibody positive R76.8 ; HIV positive Z21 ; Chronic back pain M54.9 and Catheter (urine) change required Z46.[address] [facility] [address] [place] [address] 11/22/2024 LIBIA STEVENS Assessments Encounter Date Diagnosis (ICD Code) Assessment Notes Treatment Notes Treatment Clinical Notes Section Notes 11/25/2024 Acute prostatitis (ICD-10 - N41.0) 11/25/2024 Acute urinary retention (ICD-10 - R33.8) Acute retention likely multi-factorial from drug use, chronic pain medication regimen, and prostatitis. He was treated for STI with azithromycin but negative results. He is still have s/s of prostatitis but passed v/t in the office today. He has not used drugs in nearly 3w and is residing at a rehab facility. Will treat with doxycycline 100mg bid x 14 days. Reassess in 3w with UA/PVR. 11/25/2024 IV drug user (ICD-10 - F19.90) 11/25/2024 Methamphetamine abuse (ICD-10 - F15.10) 11/25/2024 Hepatitis B antibody positive (ICD-10 - R76.8) 11/25/2024 Hepatitis A antibody positive (ICD-10 - R76.8) 11/25/2024 HIV positive (ICD-10 - Z21) 11/25/2024 Chronic back pain (ICD-10 - M54.9) 11/25/2024 Catheter (urine) change required (ICD-10 - Z46.6) Plan Of Treatment Next Appt Details Provider Name:TRI KHAN JOE, 12/23/2024 09:30:00 AM, [address] [facility] [place], [address], Insurance Providers Payer Name Payer Address Payer Phone Subscriber Number Group Number Insured Name Patient Relationship to Insured Coverage Start Date Coverage End Date [facility] [address] [address] [place], [place] [id number] Richi Ramos Self - patient is the insured Medical (General) History Medical History History ICD Code anxiety depression HIV/AIDS hepatitis B Surgical History Surgery Date(Month/Year) right femur fracture kirk and screws removed from right femur Hospitalization History Reason Date(Month/Year)
--- OUTSIDE RECORDS SUMMARY | 2024-12-11 11:54 | XMS_ITS | Clinical Summary ---
Author Organization [facility] Address [address] [place] [address] Phone Care Team Providers Care Youth Counselor Name Role Phone Unavailable Primary Care Provider [...] drink = 0.6 oz pur e alcohol) Sex and Gender Information Value Date Recorded Sex Assigned at Male 05/17/2024 12:13 PM DISCHARGING MACHINE OPERATOR Legal Sex Male 6:44 AM DISCHARGING MACHINE OPERATOR Gender Identity Male 05/17/2024 12:13 PM DISCHARGING MACHINE OPERATOR Sexual Orientation Straight 05/17/2024 12 :13 PM DISCHARGING MACHINE OPERATOR Last Filed Vital Signs Vital Sign Reading Time Taken Comments Blood Pressure 116/70 08/31/2024 1:43 PM CDT Pulse 60 06/05/2024 10:00 AM DISCHARGING MACHINE OPERATOR Temperature 37.1 C (98.7 F) 05/24/2024 12:39 PM DISCHARGING MACHINE OPERATOR Respiratory Rate 22 06/05/2024 7:35 AM DISCHARGING MACHINE OPERATOR Oxygen Saturation 100% 06/05/2024 10:00 AM DISCHARGING MACHINE OPERATOR Inhaled Oxygen Concentration - - Weight 68 kg (150 lb) 08/31/2024 1:43 PM CDT Height 177.8 cm (5' 10 ) 08/31/2024 1:43 PM CDT Body Mass Index 21.52 08/31/2024 1:43 PM CDT Plan of Treatment Health Maintenance Due Date Last Done Comments HPV VACCINES (1 - Male 3-dos e series) 07/20/2006 DTAP/TDAP/TD VACCINES (8 - T d or Tdap) 12/25/2015 12/24/2005, 12/24/2005, 11/24/1995, Additional history exists COVID-19 Vaccine ( - 2023-2 5 season) 2024 11/12/2020 INFLUENZA VACCINE (#1) 2024 , 03/17/2019, 03/17/2019 HEPATITIS B VACCINES Completed 05/27/1996, 05/27/1996, 11/24/1995, Additional history exists Medical Devices Explanted Type Area Dredge Mate Device Identifier Shelf Expiration Date Model / Serial / Lot Nail Explanted:Qty: 1 on 04/24/2023 by Panchito Khanna MD at [facility] Right: Femur [employer] Screw Explanted:Qty: 4 on 04/24/2023 by Panchito Khanna MD at [facility] Right: Femur Insurance [facility] MEDICAID * Guarantor: SANTOS RAMOS Account Type Relation to Patient Date of Phone Billing Address Personal/Family [address] [place] [address] [facility]
[2024-12-11 12:02] VITALS: BP 118/77; PULSE 99; RESP 16; TEMP 36.7; O2SAT 100
--- NOTE | 2024-12-11 12:05 | ECG_ITS ---
[facility] Inside Test Date: 2024-12-11 Pat Name: Richi Ramos Department: Room: Gender: Male Steam Presser: : 1990 Requested By: Lisa Mederos Order Number: [id number] Regalado MD: Jaden Suazo M.D. Measurements Intervals [place] Rate: 99 P: 38 DC: 127 QRS: 71 QRSD: 92 T: 55 QT: 338 QTc: 435 Interpretive Statements SINUS RHYTHM POSSIBLE RIGHT VENTRICULAR CONDUCTION DELAY [RSR (QR) IN V1/V2] NONSPECIFIC T-WAVE ABNORMALITY No previous ECG available for comparison Electronically Signed On 12-11-2024 15:52:05 CDT by Lakeisha [email or web address]
--- NOTE | 2024-12-11 12:15 | XRR_ITS ---
PROCEDURE INFORMATION: Exam: XR Abdomen Exam date and time: 12/11/2024 12:48 PM Age: 34 years old Clinical indication: Constipation TECHNIQUE: Imaging protocol: Radiologic exam of the abdomen. Views: Frontal supine view of the abdomen. 1 View. COMPARISON: CT abdomen w con* [id number] 02/12/2022 10:48 AM FINDINGS: Gastrointestinal tract: Large fecal burden. No bowel dilation. Bones/joints: Unremarkable. XR/XR KUB [id number] IMPRESSION: No acute findings. Large fecal burden.
== END 2024-12-11 16:03 | disposition left against medical advice (07) ==
PROVIDERS: Emergency Provider Family Medicine
DX: K59.00 Constipation, unspecified (principal); R94.31 Abnormal electrocardiogram [ECG] [EKG]; Z53.21 Procedure and treatment not carried out due to patient leaving prior to being seen by health care provider
CPT/HCPCS: 74018; 93005